=== PATIENT | female | born 2000 | race Two or more races ===

== ENCOUNTER → 2024-02-12 14:59 | Outpatient (CLI) | payer OTHER | END | disposition home or self-care (01) | LOC: PRENATAL 14:59 | PROVIDERS: ATTEND Obstetrics & Gynecology Maternal & Fetal Medicine | DX: O36.80X0 Pregnancy with inconclusive fetal viability, not applicable or unspecified (principal); O99.341 Other mental disorders complicating pregnancy, first trimester; Z36.82 Encounter for antenatal screening for nuchal translucency; Z36.0 Encounter for antenatal screening for chromosomal anomalies ==

== ENCOUNTER 2024-03-12 15:07 | Emergency (ER) | payer OTHER ==
[~2024-03-12] VITALS: Ht 157.5 cm; Wt 68.0 kg
[2024-03-12 15:22] VITALS: BP 107/66; O2SAT 98
[2024-03-12] MEDS ORDERED: 0.9 % SODIUM CHLORIDE 1,000 ML IV ONE (16:15)
[2024-03-12] MEDS ORDERED: FAMOtidine 10 MG/ML (4ML VIAL) IV ONE (16:15)
[2024-03-12] MEDS ORDERED: ONDANSETRON HCL 2 MG/ML VIAL IV ONE ×2 (16:15→17:45)
[2024-03-12] MEDS ORDERED: MEPERIDINE HCL/PF 25 MG/ML VIAL IV ONE (16:15)
[2024-03-12 16:29] LABS: HEMATOCRIT 36.8 % (36.0-45.00); HEMOGLOBIN 12.7 g/dL (12.0-15.00); MEAN CELL VOLUME 88.2 fL (80.00-100.00); MEAN CORPUSCULAR HEMOGLOBIN 30.4 pg (27.00-32.0); MEAN CORPUSCULAR HGB CONC 34.5 g/dl (32.0-36.0); PLATELET COUNT 311 K/uL (150-450); RED BLOOD COUNT 4.17 M/uL (4.00-6.00); RED CELL DISTRIBUTION WIDTH 13.2 % (11.5-14.5)
[2024-03-12] MEDS ORDERED: FAMOTIDINE/PF 20 MG/2 ML VIAL IV ONE (17:45)
[2024-03-12] MEDS ORDERED: ONDANSETRON HCL 2 MG/ML VIAL ONE (17:55)
[2024-03-12] MEDS ORDERED: FAMOTIDINE/PF 20 MG/2 ML VIAL ONE (17:56)
[2024-03-12 18:01] LABS: URINE APPEARANCE Cloudy; URINE BILIRRUBIN Negative (NEGATIVE); URINE BLOOD Negative; URINE COLOR Yellow; URINE GLUCOSE Negative (NEGATIVE); URINE KETONE Negative (NEGATIVE); URINE LEUKOCYTE Negative; URINE NITRATE Negative; URINE PROTEIN Negative (NEGATIVE); URINE UROBILINOGEN 0.2 E.U./dl
[2024-03-12 18:05] LABS: URINE BACTERIA 3675.3 uL (0.0-1933); URINE EPITHELIAL CELLS 165.2 uL (0.0-38.8); URINE RBC 11.6 uL (0.0-20.8); URINE WBC 25.3 uL (0.0-23.2)
[2024-03-12 18:23] LABS: ALBUMIN 3.6 gm/dL (3.4-5.0); BILIRUBIN TOTAL 0.25 mg/dL (0.3-1.2); CALCIUM 9.7 mg/dL (8.5-10.1); CREATININE SERUM 0.6 mg/dL (0.55-1.02); GFR 122.82; GLOBULINA 5.2 G/DL (2.4-3.5); POTASSIUM 3.43 mEq/L (3.5-5.1); TOTAL PROTEIN 8.8 gm/dL (6.4-8.2)
[2024-03-12 18:46] LABS: AMYLASE 56 U/L (25-115); LIPASE 32 U/L (13-75)
== END 2024-03-12 19:37 | disposition home or self-care (01) ==
LOC: ER 15:09
PROVIDERS: General Practice
DX: O26.892 Other specified pregnancy related conditions, second trimester (principal); Z3A.16 16 weeks gestation of pregnancy; R10.2 Pelvic and perineal pain

== ENCOUNTER 2024-04-07 08:07 | Outpatient (CLI) | payer OTHER | END 2024-04-07 08:08 | disposition home or self-care (01) | LOC: PRENATAL 08:07 | PROVIDERS: ATTEND Obstetrics & Gynecology Maternal & Fetal Medicine | DX: O44.00 Complete placenta previa NOS or without hemorrhage, unspecified trimester (principal); Z3A.19 19 weeks gestation of pregnancy ==

== ENCOUNTER 2024-06-05 16:55 | Outpatient (CLI) | payer OTHER ==
[2024-06-05 16:11] VITALS: BP 104/71
[2024-06-05 17:32] VITALS: BP 104/71
== END 2024-06-05 17:40 | disposition left against medical advice (07) ==
LOC: OBS/DEL 16:55
PROVIDERS: ATTEND General Practice
DX: O26.893 Other specified pregnancy related conditions, third trimester (principal); Z3A.28 28 weeks gestation of pregnancy

== ENCOUNTER 2024-06-16 16:25 | Outpatient (CLI) | payer OTHER ==
[2024-06-16 16:53] VITALS: BP 114/75
[2024-06-16] MEDS ORDERED: PRENATAL TABLE1 EAC1 (17:19)
[2024-06-16] MEDS ORDERED: CHILDREN'S ASPI81 MG (17:19)
[2024-06-16] MEDS ORDERED: RINGERS SOLUTION,LACTATED 1,000 ML IV SCH (17:30)
[2024-06-16 18:27] VITALS: BP 106/67
[2024-06-16 18:29] LABS: HEMATOCRIT 31.9 % (36.0-45.00); HEMOGLOBIN 10.8 g/dL (12.0-15.00); MEAN CELL VOLUME 88.4 fL (80.00-100.00); MEAN CORPUSCULAR HEMOGLOBIN 29.8 pg (27.00-32.0); MEAN CORPUSCULAR HGB CONC 33.8 g/dl (32.0-36.0); PLATELET COUNT 323 K/uL (150-450); RED CELL DISTRIBUTION WIDTH 13.7 % (11.5-14.5)
[2024-06-16 18:32] LABS: PH,URINE 6.5 (5.0-8.0); URINE APPEARANCE Cloudy; URINE BILIRRUBIN Negative (NEGATIVE); URINE BLOOD Negative; URINE COLOR Yellow; URINE GLUCOSE Negative (NEGATIVE); URINE KETONE Negative (NEGATIVE); URINE LEUKOCYTE Negative; URINE NITRATE Negative; URINE PROTEIN Negative (NEGATIVE); URINE UROBILINOGEN 0.2 E.U./dl
[2024-06-16 18:36] LABS: URINE BACTERIA 57.4 uL (0.0-1933); URINE RBC 3.6 uL (0.0-20.8); URINE WBC 6.6 uL (0.0-23.2)
[2024-06-16 18:54] LABS: ALBUMIN 2.9 gm/dL (3.4-5.0); BILIRUBIN TOTAL 0.15 mg/dL (0.3-1.2); CREATININE SERUM 0.49 mg/dL (0.55-1.02); GFR 155.16; GLOBULINA 4.2 G/DL (2.4-3.5); POTASSIUM 4.05 mEq/L (3.5-5.1); TOTAL PROTEIN 7.1 gm/dL (6.4-8.2)
[2024-06-16 19:50] VITALS: BP 99/69
== END 2024-06-16 20:24 | disposition home or self-care (01) ==
LOC: OBS/DEL 16:25
PROVIDERS: ATTEND General Practice
DX: O13.3 Gestational [pregnancy-induced] hypertension without significant proteinuria, third trimester (principal); R10.2 Pelvic and perineal pain; Z3A.30 30 weeks gestation of pregnancy

== ENCOUNTER 2024-07-03 11:22 | Outpatient (CLI) | payer OTHER ==
[~2024-07-03 11:22] MED LIST: CHILDREN'S ASPI81 MG; PRENATAL TABLE1 EAC1
== END 2024-07-03 11:24 | disposition home or self-care (01) ==
LOC: PRENATAL 11:22
PROVIDERS: ATTEND Obstetrics & Gynecology Maternal & Fetal Medicine
DX: O26.849 Uterine size-date discrepancy, unspecified trimester (principal); O36.8199 Decreased fetal movements, unspecified trimester, other fetus; O99.343 Other mental disorders complicating pregnancy, third trimester; O99.019 Anemia complicating pregnancy, unspecified trimester; Z3A.32 32 weeks gestation of pregnancy

== ENCOUNTER 2024-08-08 12:26 | Outpatient (CLI) | payer OTHER | END 2024-08-08 12:28 | disposition home or self-care (01) | LOC: PRENATAL 12:26 | PROVIDERS: ATTEND Obstetrics & Gynecology Maternal & Fetal Medicine | DX: O26.849 Uterine size-date discrepancy, unspecified trimester (principal); O41.00X0 Oligohydramnios, unspecified trimester, not applicable or unspecified; Z3A.36 36 weeks gestation of pregnancy ==

== ENCOUNTER 2024-08-11 15:02 | Inpatient (IN) | payer OTHER ==
[~2024-08-11] VITALS: Ht 152.4 cm; Wt 2.7 kg
[2024-08-11 21:34] VITALS: BP 143/77
[2024-08-11 21:35] VITALS: BP 143/77
[2024-08-11] MEDS ORDERED: RINGERS SOLUTION,LACTATED 1,000 ML IV SCH (21:45)
[2024-08-11] MEDS ORDERED: FUSION CAPSULE1 EACH PO (21:56)
[2024-08-11] MEDS ORDERED: ACETAMINOPHEN 500 MG GEL..CAP PO ONE ×2 (22:19→22:30)
[2024-08-11] MEDS ORDERED: MISOPROSTOL 25 MCG/4 ML GEL.W.APPL VAG ONE (22:30)
[2024-08-11] MEDS ORDERED: MISOPROSTOL 25 MCG/4 ML GEL.W.APPL ONE (22:50)
[2024-08-11 23:07] LABS: HEMATOCRIT 33.1 % (36.0-45.00); MEAN CELL VOLUME 87.3 fL (80.00-100.00); MEAN CORPUSCULAR HEMOGLOBIN 29.5 pg (27.00-32.0); MEAN CORPUSCULAR HGB CONC 33.7 g/dl (32.0-36.0); PLATELET COUNT 295 K/uL (150-450); RED BLOOD COUNT 3.79 M/uL (4.00-6.00)
[2024-08-11 23:10] VITALS: BP 109/69
[2024-08-11 23:23] LABS: URINE APPEARANCE Clear; URINE BILIRRUBIN Negative (NEGATIVE); URINE BLOOD Negative; URINE COLOR Yellow; URINE GLUCOSE Negative (NEGATIVE); URINE KETONE Trace (NEGATIVE); URINE LEUKOCYTE Negative; URINE NITRATE Negative; URINE PROTEIN Negative (NEGATIVE); URINE UROBILINOGEN 0.2 E.U./dl
[2024-08-11 23:27] LABS: INR < 0.93; PROTHROMBIN TIME 9.8 SECONDS (9.0-11.5); URINE BACTERIA 5676.6 uL (0.0-1933); URINE EPITHELIAL CELLS 62.8 uL (0.0-38.8); URINE RBC 26.8 uL (0.0-20.8); URINE WBC 27.5 uL (0.0-23.2)
[2024-08-11 23:33] LABS: ALBUMIN 2.7 gm/dL (3.4-5.0); BILIRUBIN TOTAL 0.18 mg/dL (0.3-1.2); CALCIUM 9.3 mg/dL (8.5-10.1); CREATININE SERUM 0.6 mg/dL (0.55-1.02); GFR 122.82; POTASSIUM 4.21 mEq/L (3.5-5.1); TOTAL PROTEIN 6.7 gm/dL (6.4-8.2)
[2024-08-11 23:47] LABS: HEMOGLOBIN 11.2 g/dL (12.0-15.00)
[2024-08-12 00:22] LABS: URINE CAST 0.29 uL (0.0-1.40)
[2024-08-12 00:24] LABS: URINE CRYSTALS FEW /HPF; URINE MUCUS NEGATIVE
[2024-08-12 01:01] VITALS: BP 121/67
[2024-08-12] MEDS ORDERED: ACETAMINOPHEN 500 MG GEL..CAP PO ONE ×2 (03:04→03:15)
[2024-08-12 03:13] VITALS: BP 120/78
[2024-08-12 06:07] VITALS: BP 104/55
[2024-08-12 07:53] VITALS: BP 117/69
[2024-08-12] MEDS ORDERED: MISOPROSTOL 25 MCG/4 ML GEL.W.APPL VAG ONE (08:30)
[2024-08-12 10:39] VITALS: BP 115/72
[2024-08-12 11:32] LABS: RH POSITIVE
[2024-08-12] MEDS ORDERED: MISOPROSTOL 50 MCG TABLET ONE (12:45)
[2024-08-12] MEDS ORDERED: MISOPROSTOL 50 MCG TABLET VAG NR (13:00)
[2024-08-12 15:15] VITALS: BP 109/47
[2024-08-12] MEDS ORDERED: CEFAZOLIN SODIUM 1,000 MG VIAL IV NR (18:00)
[2024-08-12] MEDS ORDERED: OXYTOCIN 10 UNITS/ML VIAL ONE (20:50)
[2024-08-12] MEDS ORDERED: ERYTHROMYCIN BASE OPHT 1GM EACH TUBE OP ONE (20:51)
[2024-08-12] MEDS ORDERED: KETOROLAC TROMETHAMINE 30 MG VIAL IV SCH (22:15)
[2024-08-12] MEDS ORDERED: CHLORHEXIDINE GLUCONATE 120 ML BOTTLE TOP ONE (22:15)
[2024-08-12] MEDS ORDERED: FAMOTIDINE/PF 20 MG/2 ML VIAL IV SCH (22:15)
[2024-08-12] MEDS ORDERED: MEPERIDINE HCL/PF 25 MG/ML VIAL IV SCH (22:15)
[2024-08-12] MEDS ORDERED: OXYTOCIN 1,000 ML IV SCH (22:15)
[2024-08-12] MEDS ORDERED: RINGERS SOLUTION,LACTATED 1,000 ML IV SCH (22:15)
[2024-08-12] MEDS ORDERED: ONDANSETRON HCL 2 MG/ML VIAL IV PRN (22:15)
[2024-08-12] MEDS ORDERED: MORPHINE SULFATE 4 MG/ML VIAL IV ONE (23:20)
[2024-08-13] MEDS ORDERED: OXYTOCIN 10 UNITS/ML VIAL ONE (00:03)
[2024-08-13 00:45] VITALS: BP 114/76
[2024-08-13] MEDS ORDERED: CEFAZOLIN SODIUM 1,000 MG VIAL IV SCH (01:00)
[2024-08-13 01:56] LABS: HEMATOCRIT 32.7 % (36.0-45.00); HEMOGLOBIN 11.1 g/dL (12.0-15.00); MEAN CORPUSCULAR HEMOGLOBIN 29.5 pg (27.00-32.0); MEAN CORPUSCULAR HGB CONC 33.9 g/dl (32.0-36.0); PLATELET COUNT 276 K/uL (150-450); RED BLOOD COUNT 3.75 M/uL (4.00-6.00); RED CELL DISTRIBUTION WIDTH 15.1 % (11.5-14.5)
[2024-08-13] MEDS ORDERED: OxyCODONE HCL/APAP UD (PERCOCET) PO PRN (08:00)
[2024-08-13 08:06] VITALS: BP 108/70
[2024-08-13] MEDS ORDERED: SIMETHICONE 125 MG CAPSULE PO SCH (09:00)
[2024-08-13] MEDS ORDERED: DOCUSATE SODIUM 100MG CAP PO SCH (09:00)
[2024-08-13] MEDS ORDERED: IBUprofen 800 MG TABLET PO PRN (13:00)
[2024-08-13 17:30] VITALS: BP 111/77
[2024-08-13 20:49] VITALS: BP 108/72
[2024-08-14 03:36] VITALS: BP 122/73
[2024-08-14 08:13] VITALS: BP 102/67
[2024-08-14 15:56] VITALS: BP 114/77
[2024-08-15 01:52] VITALS: BP 120/76
== END 2024-08-15 16:42 | disposition home or self-care (01) | DRG 788 ==
LOC: OB/GYN 21:29 → LDR 21:29 → OB/GYN 08-12 11:07
PROVIDERS: General Practice; ADMIT Student in an Organized Health Care Education/Training Program; ATTEND Student in an Organized Health Care Education/Training Program
PROC: 4A1HXCZ Monitoring of Products of Conception, Cardiac Rate, External Approach (ICD-10-PCS; 2024-08-11)
PROC: 3E0P7VZ Introduction of Hormone into Female Reproductive, Via Natural or Artificial Opening (ICD-10-PCS; 2024-08-11)
PROC: 3E033VJ Introduction of Other Hormone into Peripheral Vein, Percutaneous Approach (ICD-10-PCS; 2024-08-12)
PROC: 10D00Z1 Extraction of Products of Conception, Low, Open Approach (ICD-10-PCS; principal; 2024-08-12 20:00)
DX: O13.4 Gestational [pregnancy-induced] hypertension without significant proteinuria, complicating childbirth (principal); O36.8330 Maternal care for abnormalities of the fetal heart rate or rhythm, third trimester, not applicable or unspecified; Z3A.38 38 weeks gestation of pregnancy; Z37.0 Single live birth